=== PATIENT | female | born 1990 | race Caucasian/White ===

== ENCOUNTER 2022-04-11 17:30 | Emergency (ER) | payer OTHER ==
[~2022-04-11] VITALS: Ht 160 cm; Wt 80.7 kg
[~2022-04-11 17:30] MED LIST: BENADRYL25 MG PO; MEDROL4 MG PO; PRENATAL TABLE1 EAC1 PO
[2022-04-11] MEDS ORDERED: ZOFRAN8 MG PO (22:02)
[2022-04-11] MEDS ORDERED: PEPCID AC20 MG PO (22:02)
== END 2022-04-11 22:15 | disposition home or self-care (01) ==
LOC: ER 17:30
DX: K52.9 Noninfective gastroenteritis and colitis, unspecified (principal); Z88.6 Allergy status to analgesic agent; Z20.822 Contact with and (suspected) exposure to COVID-19